=== PATIENT | male | born 1960 | race Caucasian/White ===

== ENCOUNTER 2018-06-28 20:30 | Emergency (ER) | payer MEDICAID, OTHER ==
[~2018-06-28] VITALS: Ht 167.6 cm; Wt 76.7 kg
[2018-06-28 20:34] VITALS: Ht 167.6 cm; Wt 76.7 kg
--- NOTE | 2018-06-28 21:37 | EN ---
Date/Time of Note Date/Time of Note DATE: 06/28/18 TIME: 21:36 ER Progress Note MSE in ED 3. 57-year-old male with nontraumatic right shoulder pain radiating to the right upper extremity. Radiographic studies initiated via provider in triage. Will benefit from medication in ED 2. RANDELL CEVALLOS MD June 28, 2018 21:37
[2018-06-28] MEDS ORDERED: HYDROCODONE/APAP (5/325) TAB PO ONE (23:30)
[2018-06-29] MEDS ORDERED: NAPR-985 PO (00:29)
[2018-06-29 00:52] VITALS: BP 126/103; PULSE 84; RESP 18
--- NOTE | 2018-06-29 05:45 | ERD ---
ER Documentation Chief Complaint Chief Complaint R SHOULDER PAIN X'S 1 WEEK HPI 57-year-old male with no significant past medical history presenting to the emergency department complaints of right shoulder pain intermittently for the past 2 weeks. He states it onset suddenly. Current pain level is rated 9/10 in severity and worse with movement. He took Advil at home without significant relief. 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 No other symptoms reported at this time. ROS All systems reviewed and are negative except as per history of present illness. Medications Home Meds Active Scripts Naproxen* (Naprosyn*) 500 Mg Tablet, 500 MG PO BID PRN for PAIN AND/OR INFLAMMATION, #30 TAB Prov:MARIO GOMEZ PA-C 06/29/18 Allergies Allergies: Coded Allergies: No Known Allergy (Unverified , 06/28/18) PMhx/Soc History of Surgery: Yes (L cheek) Anesthesia Reaction: No Hx Neurological Disorder: No Hx Respiratory Disorders: No Hx Cardiac Disorders: No Hx Psychiatric Problems: No Hx Miscellaneous Medical Probl: No Hx Alcohol Use: Yes Hx Substance Use: No Hx Tobacco Use: No Smoking Status: Never smoker FmHx Family History: No diabetes Physical Exam Vitals Vital Signs Date Temp Pulse Resp B/P (MAP) Pulse Ox O2 O2 Flow FiO2 Time Delivery Rate 06/29/18 97.9 84 18 126/103 95 Room Air 00:52 (111) 06/28/18 97.0 91 18 130/86 97 20:34 (101) Physical Exam Const: No acute distress Head: Atraumatic Eyes: Normal Conjunctiva ENT: Normal External Ears, Nose and Mouth. Neck: Full range of motion. No meningismus. Resp: Clear to auscultation bilaterally Cardio: Regular rate and rhythm, no murmurs Skin: No petechiae or rashes Back: No midline or flank tenderness Ext: Tenderness palpation of the right anterior shoulder. Range of motion slightly limited secondary to pain. No obvious deformity. The patient is neurovascularly intact the right upper extremity. Neur: Awake and alert Psych: Normal Mood and Affect Results 24 hrs Current Medications Medications Dose Sig/Ish Start Time Status Last (Trade) Ordered Route PRN Stop Time Admin Dose Reason Admin 1 tab ONCE ONCE 06/28/18 DC 06/28/18 Acetaminophen PO 23:30 23:19 / 06/28/18 23:31 Hydrocodone Bitart ([place] (5/456)) [place] [address] Radiology Main Line: [phone] DIAGNOSTIC IMAGING REPORT Patient: CORINA LAY : 1960 Age: 57 Sex: M MR #: [id number] DOS: 06/28/182135 Ordering MD: RANDELL CEVALLOS MD Location: [facility] Room/Bed: PROCEDURE: XR Cervical Spine. CLINICAL INDICATION: Trauma, pain. TECHNIQUE: AP and lateral views of the cervical spine. COMPARISON: None. FINDINGS: There is a normal cervical lordosis. No spondylolisthesis is seen. The vertebral body heights are maintained. No acute fracture or subluxation is identified. The prevertebral soft tissues are normal. There are no significant degenerative changes. The visualized aerodigestive tract is normal. IMPRESSION: No acute fracture or subluxation of the cervical spine. RPTAT: HTAR .Pancho Cabral MD, MD Date Time Electronically viewed and signed by .Pancho Cabral MD, MD on 06/29/2018 00:10 .R/ CC: RANDELL CEVALLOS MD [phone] [place] [address] Radiology Main Line: [phone] DIAGNOSTIC IMAGING REPORT Patient: CORINA LAY : 1960 Age: 57 Sex: M MR #: [id number] DOS: 06/28/182135 Ordering MD: RANDELL CEVALLOS MD Location: [facility] Room/Bed: PROCEDURE: XR Shoulder. CLINICAL INDICATION: Right shoulder pain. TECHNIQUE: Three views of the right shoulder. COMPARISON: None available FINDINGS: There is no acute fracture or dislocation. The joint spaces are preserved. The coracoclavicular interval is normal. The visualized right lung is clear. IMPRESSION: No acute fracture or dislocation of the right shoulder. RPTAT: HTAR .Pancho Cabral MD, MD Date Time Electronically viewed and signed by .Pancho Cabral MD, MD on 06/29/2018 00:11 .R/ CC: RANDELL CEVALLOS MD [id number] Procedures/MDM 57-year-old male presenting to the emergency department complaining of right shoulder pain intermittently for the past 2 weeks. Physical examination and work-up most consistent with right shoulder strain. X-ray negative for any sign of fracture. Patient's extremity symptoms have stabilized while they have been evaluated in the department and are appropriate for outpatient follow up. No evidence of compartment syndrome, neurologic injury, vascular injury, open joint, open fracture, tendon laceration, or foreign body. No evidence of life-threatening pathology at time of discharge. Pt/family in ag reement with discharge plan/diagnosis. Pt/family advised to return immediately with any new or worsening symptoms. Follow-up with primary care physician within the next 1-2 days. Disclaimer: Inadvertent spelling and grammatical errors are likely due to EHR/dictation software use and do not reflect on the overall quality of patient care. Also, please note that the electronic time recorded on this note does not necessarily reflect the actual time of the patient encounter. Patient's blood pressure was elevated (>120/80) but appears stable without evidence of hypertension emergency or urgency. The patient is to follow-up and pursue outpatient monitoring and therapy with their primary care physician within 1 week and return immediately if they have any new, worsening, or concerning symptoms. Departure Diagnosis: Primary Impression: Right shoulder strain Condition: Fair Patient Instructions: Shoulder Sprain [facility] Usted se scott hecho un examen mdico de control que le indica que no est en adelaida condicin que requiera tratamiento urgente en el Departamento de Emergencia. Un estudio ms profundo y el tratamiento de arango condicin pueden esperar sin ningn riesgo hasta que usted sea atendida/o en el consultorio de arango mdico o adelaida clnica. Es responsabilidad suya arreglar adelaida omar para el seguimiento del mary. MANEJO DE CONDICIONES NO URGENTES EN EL FUTURO 1) Si usted tiene un mdico de atencin primaria: Usted debera llamar a arango mdico de atencin primaria antes de venir al departamento de emergencia. Despus de las horas de consultorio, arango doctor o arango asociado/a est disponible por telfono. El mdico o enfermero de barbara en el servicio telefnico puede asesorarle por connie medio para atender el problema, o mary contrario se puede programar adelaida omar. 2) Si usted no tiene un mdico de atencin primaria: Llame al mdico o clnica de referencia que aparece abajo joão las horas de consultorio para hacer adelaida omar para que le vean. CLINICAS: [facility] [phone] [facility] [facility] [phone] [facility]. [facility] [phone] [facility]. [place] [phone] [facility] [place] [phone] [facility]. [phone] [address] Additional Instructions: Llame al doctor MAANA y jesenia adelaida OMAR PARA DENTRO DE 1-2 CARDENAS.Dgale a la secretaria que nosotros le instruimos hacer esta omar.Avise o llame si arango condicin se empeora antes de la omar. Regresa aqui si peor o no mejor. MARIO GOMEZ PA-C June 29, 2018 05:45
== END 2018-06-29 00:54 | disposition home or self-care (01) ==
LOC: FTE 20:30
DX: S46.911A Strain of unspecified muscle, fascia and tendon at shoulder and upper arm level, right arm, initial encounter (principal); X58.XXXA Exposure to other specified factors, initial encounter; Y92.89 Other specified places as the place of occurrence of the external cause
CPT/HCPCS: 72040; 73020; Z7502; Z7610

== ENCOUNTER 2018-07-12 19:50 | Emergency (ER) | payer MEDICAID ==
[~2018-07-12] VITALS: Ht 167.6 cm; Wt 77.6 kg
[~2018-07-12 19:50] MED LIST: NAPR-985 PO
[2018-07-12 20:01] VITALS: Ht 167.6 cm; Wt 77.6 kg
--- NOTE | 2018-07-12 20:23 | ERD ---
ER Documentation Chief Complaint Chief Complaint right shoulder pain x2 weeks. HPI 57-year-old male, right-handed, return to the emergency department, 3 weeks after being seen for a similar complaint. The patient reports history of 1 month with right shoulder pain without any recent trauma. The pain is 8 out of 10, worsened by extension and lateral rotation. He denies distal weakness, numbness or tingling. 3 weeks ago the patient had x-rays of the cervical spine and the right that were negative. The patient was discharged on naproxen but he discontinued the medication 3 days after due to gastrointestinal upset. ROS All systems reviewed and are negative except as per history of present illness. Medications Home Meds Active Scripts Acetaminophen* (Tylenol*) 325 Mg Tablet, 2 TAB PO Q8 PRN for PAIN AND OR ELEVATED TEMP, #20 TAB Prov:ELLEN LARSON MD 07/12/18 Prednisone* (Prednisone*) 20 Mg Tab, 40 MG PO DAILY for 5 Days, TAB Prov:ELLEN LARSON MD 07/12/18 Naproxen* (Naprosyn*) 500 Mg Tablet, 500 MG PO BID PRN for PAIN AND/OR INFLAMMATION, #30 TAB Prov:MARIO GOMEZ PA-C 06/29/18 Allergies Allergies: Coded Allergies: No Known Allergy (Unverified , 07/12/18) PMhx/Soc History of Surgery: Yes (L cheek) Anesthesia Reaction: No Hx Neurological Disorder: No Hx Respiratory Disorders: No Hx Cardiac Disorders: No Hx Psychiatric Problems: No Hx Miscellaneous Medical Probl: No Hx Alcohol Use: Yes Hx Substance Use: No Hx Tobacco Use: No Smoking Status: Never smoker FmHx Family History: No diabetes, No coronary disease Physical Exam Vitals Vital Signs Date Temp Pulse Resp B/P (MAP) Pulse Ox O2 O2 Flow FiO2 Time Delivery Rate 07/12/18 97.8 80 18 147/78 96 20:01 (101) Physical Exam Const: No acute distress Head: Atraumatic Eyes: Normal Conjunctiva ENT: Normal External Ears, Nose and Mouth. Neck: Full range of motion. No meningismus. Resp: Clear to auscultation bilaterally Cardio: Regular rate and rhythm, no murmurs Abd: Soft, non tender, non distended. Normal bowel sounds Skin: No petechiae or rashes Back: No midline or flank tenderness Ext: Right shoulder: Normal inspection, full passive range of motion, distal neurovascular exam intact. Diffuse tenderness in the rotator cuff area. Neur: Awake and alert Psych: Normal Mood and Affect Procedures/MDM right shoulder pain: no red flags. Differential diagnosis include but not limited to: Shoulder contusion, rotator cuff injury, tendon/ligament injury, arthritis; low suspicion for fracture, dislocation, septic arthritis. Neurovascular exam grossly intact. no clinical findings suggestive of acute i nfectious process, no acute deformity, no edema, no rashes. Physical examination and clinical presentation consistent most likely with right shoulder tendinitis. Results and clinical impression discussed with the patient who agrees with management. The patient is stable to be treated outpatient and will be discharged home with recommendations for ice, physical therapy and prednisone daily for 5 days and close monitoring. The patient was instructed to follow up with the primary care provider in the next 48h. If symptoms persist, worsen or new symptoms develop, then patient should return to the ED immediately. Instructions explained and given to patient with acknowledgment and demonstrated understanding. Disclaimer: Inadvertent spelling and grammatical errors are likely due to EHR/dictation software use and do not reflect on the overall quality of patient care. Also, please note that the electronic time recorded on this note does not necessarily reflect the actual time of the patient encounter. Departure Diagnosis: Primary Impression: Right shoulder tendinitis Condition: Stable Additional Instructions: Muchas desi por [facility] para arango servicio. Esperamos que en arango visita a la kathryn de emergencia arango problema medico haya sido solucionado y que se sienta mucho mejor. Para estar seguros que arango mejoria sigue en proceso, le pedimos el favor de hacer adelaida dean de seguimiento medico con arango doctor primario en los proximos 2-4 cleaning. Lleve con usted estos documentos y las medicinas recetadas. Si charissa sintomas empeoran, NO SE ESPERE, por favor regrese a kathryn de emergencia INMEDIATAMENTE. En mary que usted no tenga un mdico de atencin primaria: Llame al mdico o clnica comunitaria de referencia que aparece abajo joão las horas de consultorio para hacer adelaida dean para que le vean. CLINICAS: [facility] [phone] [address] [facility] [phone] [address] [facility] [phone] [address] [place] [address] [phone] [place] [address] [phone] [facility]. [phone] ELLEN HARTMANN MD Jul 12, 2018 20:23
[2018-07-12] MEDS ORDERED: PRED20TA PO (20:34)
[2018-07-12] MEDS ORDERED: ACET325T33 PO (20:34)
[2018-07-12 20:48] VITALS: BP 120/87; PULSE 81; RESP 18
== END 2018-07-12 20:48 | disposition home or self-care (01) ==
LOC: FTE 19:50
DX: M77.9 Enthesopathy, unspecified (principal)
CPT/HCPCS: 99283